=== PATIENT | female | born 1975 | race African-American/Black ===

== ENCOUNTER 2017-08-08 18:56 | Emergency (ER) | payer MEDICAID ==
[~2017-08-08] VITALS: Ht 165.1 cm; Wt 90.0 kg
[2017-08-08] MEDS ORDERED: SODIUM CHLORIDE 0.9% 1,000 ML IV ONE ×2 (20:01→22:58)
[2017-08-08] MEDS ORDERED: ONDANSETRON HCL 4MG/2ML VIAL IV ONE (20:15)
[2017-08-08 20:53] LABS: CLARITY URINE CLOUDY (CLEAR); COLOR URINE YELLOW (YELLOW); KETONES URINE TRACE (NEGATIVE); LEUKOCYTE ESTERASE URINE NEGATIVE (NEGATIVE); NITRITE URINE NEGATIVE (NEGATIVE); OCCULT BLOOD URINE NEGATIVE (NEGATIVE); PROTEIN URINE 2+ (NEGATIVE); SPECIFIC GRAVITY URINE 1.024 (1.005-1.030)
[2017-08-08 21:01] LABS: METHADONE URINE SCREEN NEGATIVE (NEGATIVE)
[2017-08-08 21:02] LABS: *AMPHETAMINES SCREEN URINE NEGATIVE (NEGATIVE); *BARBITURATES SCREEN URINE NEGATIVE (NEGATIVE); *COCAINE SCREEN URINE NEGATIVE (NEGATIVE); PHENCYCLIDINE URINE SCREEN NEGATIVE (NEGATIVE)
[2017-08-08 21:04] LABS: *BENZODIAZEPINES SCREEN URINE PRESUMTIVE POSITIVE (NEGATIVE); CANNABINOID URINE SCREEN PRESUMTIVE POSITIVE (NEGATIVE); OPIATES URINE SCREEN PRESUMTIVE POSITIVE (NEGATIVE)
[2017-08-08 21:19] VITALS: BP 135/88
[2017-08-08 21:25] LABS: BASOPHILS % 2.3 % (0.0-2.0); EOSINOPHILS % 0.5 % (0.0-5.0); HEMATOCRIT. 31.2 % (36.0-48.0); HEMOGLOBIN. 10.3 g/dL (12.0-16.0); MEAN CORPUSCULAR HEMOGLOBIN 30.7 pg (28.0-32.0); MEAN CORPUSCULAR VOLUME 93.6 fL (81.0-99.0); MONOCYTES % 7.5 % (2.0-8.0); NEUTROPHILS % 56.7 % (40.0-76.0); PLATELET 242 x1000/uL (130-400); RED BLOOD CELL COUNT 3.34 mill/uL (4.2-5.4); RED CELL DISTRIBUTION WIDTH 22.6 % (11.6-14.6)
[2017-08-08 21:27] LABS: CHLORIDE 109 mEq/L (98-107)
[2017-08-08 21:44] LABS: PLATELET ESTIMATE NORMAL
[2017-08-08 21:52] LABS: ETHANOL BLOOD 364 mg/dL
[2017-08-08] MEDS ORDERED: KETOROLAC 30MG/ML VIAL IV STA (22:59)
== END 2017-08-09 12:26 | disposition home or self-care (01) ==
LOC: ER 19:00
DX: F10.229 Alcohol dependence with intoxication, unspecified (principal); M60.9 Myositis, unspecified; D64.9 Anemia, unspecified; F17.200 Nicotine dependence, unspecified, uncomplicated; F12.10 Cannabis abuse, uncomplicated; F32.9 Major depressive disorder, single episode, unspecified; Y90.8 Blood alcohol level of 240 mg/100 ml or more
CPT/HCPCS: 36415; 80053; 80305; 80307; 80329; 81003; 81025; 85025; 96374; 99284; G0482; J2405; J7030; X7700; Z7610; J1885

== ENCOUNTER 2017-08-15 22:51 | Emergency (ER) | payer MEDICAID ==
[~2017-08-15] VITALS: Ht 177.8 cm; Wt 82.0 kg
[2017-08-15 23:00] VITALS: BP 134/72
[2017-08-15] MEDS ORDERED: FAMOTIDINE 20MG/2ML VIAL IV STA (23:43)
[2017-08-15] MEDS ORDERED: ONDANSETRON HCL 4MG/2ML VIAL IV STA (23:43)
[2017-08-15] MEDS ORDERED: SODIUM CHLORIDE 0.9% 1,000 ML IV ONE (23:43)
[2017-08-15] MEDS ORDERED: THIAMINE HCL 100 MG/1 ML 2ML VIAL IV ONE (23:45)
[2017-08-15] MEDS ORDERED: METOCLOPRAMIDE HCL 10MG/2ML VIAL IV ONE (23:45)
[2017-08-16 00:48] LABS: BASOPHILS % 0.5 % (0.0-2.0); EOSINOPHILS % 0.1 % (0.0-5.0); HEMATOCRIT. 35.1 % (36.0-48.0); HEMOGLOBIN. 11.8 g/dL (12.0-16.0); LYMPHOCYTES % 16.9 % (20.0-50.0); MEAN CORPUSCULAR HEMOGLOBIN 31.4 pg (28.0-32.0); MEAN CORPUSCULAR VOLUME 93.3 fL (81.0-99.0); MEAN PLATELET VOLUME 8.7 fl (7.4-10.4); MONOCYTES % 8.2 % (2.0-8.0); NEUTROPHILS % 74.3 % (40.0-76.0); PLATELET 136 x1000/uL (130-400); RED BLOOD CELL COUNT 3.76 mill/uL (4.2-5.4); RED CELL DISTRIBUTION WIDTH 23.6 % (11.6-14.6)
[2017-08-16 00:54] LABS: CHLORIDE 98 mEq/L (98-107)
[2017-08-16 00:55] LABS: PROTHROMBIN TIME 10.9 sec (9.4-11.6)
[2017-08-16 00:58] LABS: ETHANOL BLOOD 273 mg/dL
[2017-08-16 01:00] LABS: AMMONIA 41 uMol/L (<32)
[2017-08-16 01:24] LABS: HCG SCREEN NEGATIVE
[2017-08-16 01:39] LABS: PLATELET ESTIMATE NORMAL
== END 2017-08-16 01:00 | disposition left against medical advice (07) ==
LOC: ER 22:51
DX: K29.20 Alcoholic gastritis without bleeding (principal); E87.2 Acidosis; K85.90 Acute pancreatitis without necrosis or infection, unspecified; E87.6 Hypokalemia; D64.9 Anemia, unspecified; R74.0 Nonspecific elevation of levels of transaminase and lactic acid dehydrogenase [LDH]; F10.229 Alcohol dependence with intoxication, unspecified; Y90.8 Blood alcohol level of 240 mg/100 ml or more
CPT/HCPCS: 36415; 80053; 82140; 83605; 83690; 84703; 85025; 85610; 99284; G0482; J2405; J2765; J3490; J7030